=== PATIENT | female | born 1970 | race Caucasian/White ===

== ENCOUNTER 2023-02-27 21:46 | Observation (INO) ==
[2023-02-27] MEDS ORDERED: Ondansetron ODT 4 mg TAB 4 MG TAB PO ONE (22:34)
[2023-02-27] MEDS ORDERED: Morphine 4 MG/ML VIAL (1 ml) IV ONE (23:11)
[2023-02-27 23:34] LABS: ABS Basophils 0.1 10^3/uL (0.0-0.1); ABS Lymphocytes 1.3 10^3/uL (1.0-4.8); ABS Monocytes 1.1 10^3/uL (0.0-0.9); ABS Neutrophils 18.5 10^3/uL (1.5-7.6); ABS Nucleated RBC 0.01 10^3/ul; Eosinophil % 0.1 %; Hematocrit 43.4 % (35-45); Hemoglobin 14.9 g/dL (11.5-14.3); Lymphocyte % 6.3 %; Mean Corpuscular Hgb Conc 34.4 g/dL (31-36); Mean Corpuscular Volume 90.3 fL (80-97); Mean Platelet Volume 9.4 fL (7.5-11.2); Platelet Count 217 10^3/uL (150-450); Red Cell Distribution Width 13.5 % (12-17); White Blood Count 21.1 10^3/uL (3.8-11.8)
[2023-02-27 23:45] LABS: ALT 19 U/L (7-52); AST 20 U/L (13-39); Albumin 5.3 g/dL (3.2-5.2); Alkaline Phosphatase 57 U/L (35-149); Anion Gap 16 mmol/L (2-16); Blood Urea Nitrogen 16 mg/dL (6-24); C Reactive Protein < 1.00 mg/L (<8.01); CO2 Carbon Dioxide 18 mmol/L (22-32); Calcium 10.3 mg/dL (8.6-10.3); Chloride 101 mmol/L (101-111); Creatinine, Serum 0.87 mg/dL (0.51-0.95); Globulin 2.7 g/dL (2-4); Glucose 160 mg/dL (70-100); Lipase 30 U/L (11.0-82.0); Potassium 3.4 mmol/L (3.5-5.0); Sodium 135 mmol/L (135-145); eGFR CKD-EPI 80.6 (>60)
[2023-02-27 23:51] LABS: HCG Pregnancy 1.05 mIU/mL
[2023-02-27] MEDS ORDERED: Lactated Ringers 1000 ml BAG 1,000 ML IV ONE (23:55)
[2023-02-28] MEDS ORDERED: Iohexol 300 (CONTRAST) 10 ML SDV IV ONE (00:29)
[2023-02-28] MEDS ORDERED: Lactated Ringers 1000 ml BAG 1,000 ML IV ONE (01:32)
[2023-02-28 02:24] LABS: Urine Appearance Cloudy; Urine Bilirubin Negative (Negative); Urine Blood Negative (Negative); Urine Color Yellow; Urine Glucose 1+(50 mg/dL) (Negative); Urine Ketones 2+ (Negative); Urine Nitrite Negative (Negative); Urine Protein Negative (Negative); Urine Specific Gravity 1.017 (1.002-1.030); Urine Urobilinogen Negative (Negative)
[2023-02-28 02:28] LABS: Urine Amorphous Crystals Present (Absent); Urine Bacteria 1+ (Absent); Urine Red Blood Cell Absent (Absent); Urine Squamous Epithelial Cell Present (Absent); Urine White Blood Cell 2+(11-20/hpf) (Absent)
[2023-02-28] MEDS ORDERED: Piperacillin/Tazobac 3.375 BAG 3.375 GM/100 ML BAG IV ONE (02:41)
[2023-02-28] MEDS ORDERED: Ondansetron 4 mg VIAL 2 MG/ML 2 ml VIAL IV PRN ×2 (03:18→08:47)
[2023-02-28] MEDS ORDERED: Morphine 2 MG/ML SYRINGE IV PRN (03:24)
[2023-02-28 06:00] LABS: ABS Basophils 0.1 10^3/uL (0.0-0.1); ABS Lymphocytes 0.9 10^3/uL (1.0-4.8); ABS Neutrophils 14.1 10^3/uL (1.5-7.6); Hematocrit 38.1 % (35-45); Hemoglobin 13.1 g/dL (11.5-14.3); Lymphocyte % 5.4 %; Mean Corpuscular Hemoglobin 31.1 pg (27-33); Mean Corpuscular Hgb Conc 34.4 g/dL (31-36); Mean Corpuscular Volume 90.3 fL (80-97); Mean Platelet Volume 9.2 fL (7.5-11.2); Platelet Count 184 10^3/uL (150-450); Red Blood Count 4.22 10^6/uL (3.63-4.92)
[2023-02-28 06:16] LABS: Calcium 8.8 mg/dL (8.6-10.3); Creatinine, Serum 0.76 mg/dL (0.51-0.95); Potassium 3.3 mmol/L (3.5-5.0); eGFR CKD-EPI 94.8 (>60)
[2023-02-28] MEDS ORDERED: fentaNYL 100 mcg/2 ml 50 MCG/ML VIAL ONE (08:23)
[2023-02-28] MEDS ORDERED: Lidocaine 2% PF 5 ML VIAL ONE (08:23)
[2023-02-28] MEDS ORDERED: Rocuronium 50 mg VIAL 10 mg/ml 5 ml VIAL (50 mg) ONE (08:23)
[2023-02-28] MEDS ORDERED: Propofol 10 MG/ML 20 ML BTL ONE (08:23)
[2023-02-28] MEDS ORDERED: Bupivacaine 0.25% SDV 30 ML ONE (08:30)
[2023-02-28] MEDS ORDERED: Midazolam 2 mg/2 ml VIAL 1 mg/ml 2 ml VIAL (2 mg) ONE (08:30)
[2023-02-28] MEDS ORDERED: Sodium Citrate/Citric Acid LIQ 15 ML UDC PO ONE (08:47)
[2023-02-28] MEDS ORDERED: fentaNYL 100 mcg/2 ml 50 MCG/ML VIAL IV PRN (08:47)
[2023-02-28] MEDS ORDERED: HYDROcodone/ACETAMIN 5/325 mg TAB PO PRN (08:47)
[2023-02-28] MEDS ORDERED: Buffered Lidocaine 1% SYRIN 1 ml INTRADERM ONE (08:47)
[2023-02-28] MEDS ORDERED: Naloxone 0.4 mg VIAL 0.4 mg/ml 1 ml VIAL IV PRN (08:47)
[2023-02-28] MEDS ORDERED: Metoclopramide 5 MG/ML VIAL (10 mg) IV PRN (08:47)
[2023-02-28] MEDS ORDERED: Sodium Citrate/Citric Acid LIQ 15 ML UDC ONE (08:49)
[2023-02-28] MEDS ORDERED: Lactated Ringers 1000 ml BAG 1,000 ML IV SCH (09:00)
[2023-02-28] MEDS ORDERED: Ondansetron 4 mg VIAL 2 MG/ML 2 ml VIAL ONE (09:24)
[2023-02-28] MEDS ORDERED: Dexamethasone IV 4 MG/ML VIAL 1 ml VIAL ONE (09:24)
[2023-02-28] MEDS ORDERED: HYDROcodone/ACETAMIN 5/325 mg TAB ONE (10:27)
[2023-02-28 11:02] VITALS: BP 123/74
== END 2023-02-28 11:05 | disposition home or self-care (01) ==
LOC: ED 21:46 → EDHOLD 21:46 → AA 02-28 07:47
PROVIDERS: ADMIT Surgery; ATTEND Surgery